=== PATIENT | female | born 1980 | race Caucasian/White ===

== ENCOUNTER 2018-07-04 05:53 | Day surgery (SDC) | payer OTHER, SELFPAY ==
[2018-06-30 15:24] LABS: Hematocrit 38.7 % (37-47); Hemoglobin 12.9 g/dl (12.0-15.0); Mean Corp Hgb Conc 33.3 g/gl (32-36); Mean Corpuscular Hgb 30.6 pg (27.0-32.0); Mean Corpuscular Volume 91.9 fL (81-99); Mean Platelet Vol. 11.8 fl (6.2-12.0); Platelet Count 218 K/mm3 (150-450); RBC Distribution Width CV 11.8 % (11.6-14.6); RBC Distribution Width SD 39.4 fl (35.1-43.9); Red Blood Count 4.21 M/mm3 (4.2-5.4); Scan Indicated on CBC? Y/N NO; White Blood Count 5.4 K/mm3 (4.4-11.0)
[2018-06-30 15:48] LABS: International Normalized Ratio 0.9; Partial Thromboplast Time 28.2 Seconds (24.1-36.2); Prothrombin Time (Protime)PT. 12.4 SECONDS (11.7-14.9)
[2018-06-30 16:04] LABS: Creatinine, Serum 0.78 mg/dL (0.55-1.02); EST Glomerular Filtration Rate 87 mL/min (>60); Est Glom Filt Rate - Afr Amer 106 mL/min (>60)
--- NOTE | 2018-07-03 20:28 | PCM.HP.BLA ---
History and Physical Date of Admission: 07/04/18 Surgical History and Physical Joanna Arguelles, a 38 year old female 4 0 0 0 4, presents for RAVH/BSO on July 04, 2018 at 9:00. -- Submucous fibroids; hematometrium s/p EM ablation; severe cyclic pelvic pain -- RLQ pain that radiates to back which began 2 weeks. Joanna claims it started gradually and has been present worsened last night. It occurs all the time. It is located in the RLQ of the abdomen. Joanna characterizes it to be upwards to the back. Joanna characterizes the quality sharp.; Joanna characterizes the quality searing.; Joanna characterizes the quality stabbing. 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 MEDICATIONS HISTORY: Patient is also takin. Advil 200 mg tablet, Two tablets prn 2. oxycodone-acetaminophen 10 mg-325 mg tablet, 1 to2 pills by mouth every 6 hours as needed ALLERGIES: Tape, Skin rxn, Exedrin, Hives, Adhesive Tape, Skin irritation, Aspirin, Hives and/or rash, Vicodin and Itching of skin Infections - Chicken pox Illnesses - none Accidents - no injuries of consequence Hospitalizations - see surgery and Childbirth Review of Systems: GENERAL - Denies fever, or chills SKIN - Denies skin changes EYES - Denies visual changes EARS - Denies difficulty hearing NOSE - Denies nasal congestion or bleeding MOUTH - Denies sore throat or difficulty swallowing NECK - Denies pain or swelling RESPIRATORY - Denies shortness of breath or wheezing CARDIOVASCULAR - Denies palpitations or chest pain GASTROINTESTINAL - Denies nausea, vomiting, diarrhea, constipation GENITOURINARY - Denies dysuria, frequency of urination, incontinence of urine MUSCULOSKELETAL - Denies joint or muscle pain NEUROLOGICAL - Denies localized numbness or weakness PSYCHIATRIC - Denies depression or anxiety ENDOCRINE - Denies heat or cold intolerance, weight loss or gain HEMATO-IMMUNOLOGIC - Denies excesive bleeding with cuts SOCIAL HISTORY: Alcohol Use - denies drinking Smoking - denies smoking Diet - no special diet Lifestyle - low stress lifestyle and Exercise - swim Seat Belt Use - always Employer - [employer] Job Description - office work Illicit Drug Use - denies use of street drugs Sexual Activity - Hours Worked - 40 hours per week Spouse-Sig Other Name - Leo Arguelles Spouse-Sig Other Occupation - skilled nursing facility counselor @ [employer] Spouse-Sig Other Phone No - [phone] Children Name(s) - Wilbert, (Dr. Saleem) Mc Preciado (Dr. Preeti Sanders), Elba Hinton (10/13-[facility]) Control - Tubal FAMILY HISTORY: Maternal history of MGM had low platelets, weekly platelet t and Heart Disease. MENSTRUAL HISTORY: LMP Known?- Definite, LMP - 09/24/17, Age Onset Menarche - 11 PAST PREGNANCIES: Total Pregnancies - 4; Full Term Pregnancies - 4; Premature - 0; Abortions, Induced - 0; Abortions, Spontaneous - 0; Ectopics - 0; Multiple Births - 0; Living Children - 4 SURGICAL HISTORY: 1. C/S x3, 1993, 2005, 2007 ; - 2. Tonsils 1984 ; - 3. 10/29/2009 , Tubal ; Eva Natarajan M.D. - Repeat 4. 09/24/2017 Hysteroscopy, D and C, HTA ; Eva Natarajan M.D. - PHYSICAL EXAM BP- 124/76 Sitting, Right arm, regular cuff Weight- 231.55445 lbs Height- 70 inch BMI:33.21 CONSTITUTIONAL - NAD, well nourished, and well developed SKIN - No rash, lesions, or ulcers HEENT - Normocephalic, PERRLA, EOMI NECK - No nodes, no nuchal rigidity and thyroid normal size and texture LYMPH NODES - Palpation of lymph nodes in neck and groins within normal limits LUNGS - CTA x2 without wheezes, crackles or rales CARDIAC - Regular rate and rhythm without rubs, murmurs, or gallops ABDOMEN - Without hepatosplenomegaly, distention, masses, rebound, or guarding; normal bowel sounds; no hernias EXTREMITIES - No edema or calf tenderness NEUROLOGICAL - Cranial nerves II-XII grossly intact PSYCHIATRIC - A and O to time, place, person, mood and affect External Genitial Vagina - non-tender without lesions Urethra/Urethral Meatus - non-tender Bladder - non-tender Vagina - vaginal velez are pink and moist without loss of rugae and no evidence of atropy Cervix - without cervical motion tenderness and has normal size and features without evident lesions Uterus - enlarged uterus 8 wks, wt 125-150 g and moderately tender R>L Adnexa - clear without massess or tenderness ASSESSMENT/PLAN: 1. Hematometra, Pelvic Pain, Unspec and Submucous Leiomyoma Of Uterus Severe pain with this and last menses with u/s today confirming post ablative hematometria. Also, submucous fibroid present. Discussed options for treatment with severity of pain pt desires proceeding with RAVH/BSO. Discussed RBAs including needing to be on HRT for an indefinite period of time and all questions answered.
[2018-07-04] VITALS (13 sets, daily range): BP systolic 101–133; BP diastolic 51–64; PULSE 64–81; RESP 14–16; TEMP 36.4–36.9; O2SAT 96–100; BMI 30.9
--- NOTE | 2018-07-04 06:06 | EKG12_ITS ---
Test Reason : PREOP Blood Pressure : / mmHG Vent. Rate : 067 BPM Atrial Rate : 067 BPM P-R Int : 138 ms QRS Dur : 084 ms QT Int : 390 ms P-R-T Axes : 039 006 008 degrees QTc Int : 412 ms Normal sinus rhythm Low voltage QRS Borderline ECG No previous ECGs available Confirmed by HARLAN ALBA, BEATRIZ ([id number]), desk editor JUAN CARLOS DALTON ([id number]) on 07/05/2018 2:59:04 PM Referred By: Gelacio Soliz Confirmed By:BEATRIZ CLAROS MD
--- NOTE | 2018-07-04 07:28 | OP.PCM_ITS ---
Operative Report Date of Procedure: 07/04/18 Surgeon: Gelacio Soliz MD, FACOG Editor In Chief: PATRICIO Nichols Anesthesia: Mirtha Major CRNA Type of anesthesia: General Endotracheal Procedure: Robotic Assisted Vaginal Hysterectomy and Bilateral Salpingoophrectomy Pre-Op: Hematometrium Status Post Endometrial Ablation, Pelvic Pain, Uterine Fibroids Post-Op: Hematometrium Status Post Endometrial Ablation, Pelvic Pain, Uterine Fibroids Findings: 10 cm fibroid uterus with normal appearing tubes and ovaries bilaterally; evidence of prior tubal ligation with Filshie clips Indication: This is a 38 year old patient who has been having problems with severe pelvic pain with her menses status post endometrial ablation. Conservative measures have not been helpful. The patient has been counseled regarding the risks, benefits and alternatives of this procedure including the possibility of bleeding, infection, and injury to surrounding structures such as bowel bladder and all questions were answered. She understands that with BSO she will need to be on HRT for an indefinite period of time. Procedure: Pt taken to the operating room where after induction of general anesthesia the patient was prepped and draped in the usual sterile fashion and placed on a non-slip Huggy-u-vac device. Trendendelenburg test was satisfactor y. Bladder was drained of urine with a Mejía catheter which was left in place. Anterior cervix grasped and cervix was dilated to about 3-4 mm. Uterus sounded to 8 cms although the uterus was noted to be perforated at the time of sounding. 0-Vicryl suture was placed at the 3:00 and 9:00 position of the cervix. A large V-care device was then placed in the uterus to allow uterine manipulation and attention was turned to the laparoscopic portion of the procedure. Ropivicaine 0.5% was injected approximately 2-3 cm superior to the umbilicus and an 8 mm robotic camera port was introduced directly with intraperitoneal placement confirmed with insufflation. 8 mm robotic side ports were introduced under direct visualization approximately 11 cm lateral and 2 cm inferior to the umbilical port. A 5 mm left upper quadrant port was introduced and airseal insufflation with CO2 was started. The above findings were noted. Robot was docked without difficulty and attention turned to the robotic portion of the procedure. Approximately 30 cc of Ropivicaine was used. Bilateral infundibulopelvic ligaments were ligated with 45 reid bipolar coagulation to the level of the round ligament. The posterior aspect of the cervix was identified and then opened for about 1 cm using 25 watt monopolar cautery identifying the V-care device which had been placed vaginally. Bladder flap was opened and divided to the level of the round ligaments using monopolar cautery. Progressive bites were then ligated on each side of the cervix with 35 reid bipolar cautery to the uterine arteries. The anterior vaginal mucosa was then entered and cervix circumscribed with monopolar cautery. Uterus and attached ovaries and tubes were then removed through the vagina. Vaginal cuff was closed first with 0-Vicryl Klarissa stitches placed at each angle followed by closure of the mid-cuff with 0-Monocryl V-lock suture in two layers. Pelvis was copiously irrigated with saline and the right and left ureters garcia noted to peristalse. Robot was undocked and trocars were removed with as much gas as possible. Incisions were closed with 4-0 Monocryl subcuticular sutures and incisions covered with steri-strips and op site dressing. The patient tolerated the procedure well and was taken to the recovery room in satisfactory condition. Sponge, instruments and needle counts were all correct. There were no apparent complications of the surgery. Cefotan 2 gms IV was given prior to the procedure. Estimated Blood Loss: Minimal Specimen to Pathology: Uterus and bilateral tubes and ovaries
--- NOTE | 2018-07-04 07:29 | DCINST_ITS ---
Discharge Diet: No Restrictions Discharge Activity: Return to Normal Activity, May not drive while taking narcotic pain medications., May Shower, May Take a Tub Bath May resume sexual activity in: 6-8 weeks Call your doctor if your incision/area has: Continuous Slow Oozing, Sudden Incre ased Bleeding, Increased Pain/ Swelling, Increased Redness, Foul Smelling Discharge Call your doctor if you observe: Fever of 101 or Higher, Inability to urinate, Inability to have a bowel movement, Using more than one pad per hour Allergies/Adverse Reactions: Allergies aspirin [From Excedrin Migraine] Allergy (Verified 06/30/18 10:56) Swelling caffeine [From Excedrin Migraine] Allergy (Verified 06/30/18 10:56) Swelling PLASTIC TAPE Allergy (Uncoded 06/30/18 10:57) Rash Medications to take at Discharge Ibuprofen 200 mg PO Q4H PRN PRN 06/30/18 Docusate Sodium [Colace] 100 mg PO BID PRN PRN #60 cap 07/04/18 Estradiol 2 mg PO DAILY #100 tab 07/04/18 Oxycodone [Oxyir] 5 mg PO Q6H PRN PRN 7 Days #20 tab 07/04/18 The following prescriptions were given: Oxycodone [Oxyir] 5 mg PO Q6H PRN PRN 7 Days #20 tab PRN Reason: Severe Pain (-07/13) Docusate Sodium [Colace] 100 mg PO BID PRN PRN #60 cap PRN Reason: Constipation Estradiol 2 mg PO DAILY #100 tab Primary Care Physician: Tacos Francois DO [Primary Care Provider] - Test Results: Test results from this visit will be discussed in further detail at your follow- up appointment, if applicable. Please Follow Up With: Gelacio Soliz MD When: 2-3 weeks
--- NOTE | 2018-07-04 07:30 | UT_PTH ---
PATIENT: LIAN NASH LOC[place] [facility] [place][id number] AGE/SX: 38/F ROOM: RE07/04/[address]: Dr. Gelacio Soliz MD : 1980 BED: DIS: 07/05/2018 SPEC #: [id number] RECD: 07/04/18 10:49 STATUS: LETA RECarter #: [id number] MARIELENA: 07/04/18 07:[address]: Gelacio Soliz DEPT: SURGICAL PATHOLOGY RECD BY: Kai Crawley ENTERED: 07/04/18 11:11 SP TYPE: UTERUS OTHR DR: Dr. Tacos Francois DO Tissues: Uterus, NOS Procedures: Surgery Specimen Level V HEADER OPERATION: Robotic assisted vaginal hysterectomy, bilateral salpingo-oophorectomy PRE-OP DIAGNOSIS: Hematometra, pelvic pain, submucous leiomyoma of uterus TISSUE SUBMITTED: Uterus, cervix, bilateral fallopian tubes and bilateral ovaries MICROSCOPIC DIAGNOSIS Uterus, cervix, bilateral fallopian tubes and bilateral ovaries, vaginal hysterectomy and bilateral salpingo-oophorectomy: Cervix - mild chronic cystic cervicitis. Endometrium - proliferative endometrium. - Focal fibrosis consistent with previous endometrial ablation. Bilateral fallopian tubes - no pathologic diagnosis. Right ovary - physiologic follicular cysts. Left ovary - mature cystic teratoma, dermoid cyst (1.5 cm in greatest dimension). - Physiologic follicular and corpus luteum cysts. SJ:angela 07/05/18 COMMENT Please make reference to previous specimen ([id number]) endometrial curettings with diagnosis of secretory endometrium. MICROSCOPIC DESCRIPTION Slides are reviewed. GROSS DESCRIPTION Received in fixative is one container labeled with the patient's name and designated uterus, cervix, bilateral fallopian tubes and bilateral ovaries. The specimen consists of a hysterectomy specimen consisting of uterus with cervix and attached bilateral fallopian tubes and ovaries. The uterus with cervix weighs 105 gm and measures 9 x 6 x 4 cm. The serosal surface is horowitz, glistening. The ectocervical mucosa is congested. The external os is slit-like in contour. The endocervical canal measures 3.5 cm in length and the endocervical mucosa is horowitz, glistening and unremarkable. The triangular endometrial cavity measures 5 cm in length and up to 3 cm in width. It shows a focal area of fibrosis 2.5 cm distal to the internal os. The endometrium is horowitz, glistening without any mass lesion. The endometrium measures 0.1 cm in thickness. The anterior uterine wall shows a defect reaching up to most of the thickness of the uterine wall and it is 0.5 cm away from the serosal surface. The anterior uterine wall measures up to 1.5 cm in thickness and the posterior uterine wall measures up to 2.5 cm in thickness. Sections of the uterine wall do not reveal any obvious mass lesion. The right fallopian tube measures 9 cm in length and up to 0.8 cm in diameter. The fimbrial end is identified. Two Filshie clips are noted in the middle portion of the fallopian tube which appears intact. The right ovary measures 2.5 x 1.5 x 1.5 cm. Sections reveal multiple cysts filled with clear fluid. The largest cyst measures 1 cm in diameter. The soft to cystic left ovary measures 3 x 2.5 x 2 cm. Sections reveal a cyst filled with sebum-like material measuring 1.5 x 1.5 x 1 cm. Additional cysts are also noted filled with clear to hemorrhagic fluid. [employer] sections are submitted in 14 cassettes as follows: 1 - anterior cervix, 2 - posterior cervix, 3-6 - anterior uterine wall including area of defect, 7 & 8 - posterior uterine wall, 9 - right fallopian tube, 10 - right ovary, 11 - left fallopian tube, 12-14 - left ovary, entirely submitted. / HOWIE:angela 07/04/18 TC:1 CPT: 32684
[2018-07-04] MEDS: Ropivacaine 0.5% 30 ML Vial (08:08)
[2018-07-04] MEDS: Ketorolac 30 MG/ML Syringe IV ×2 (15:15→21:16)
[2018-07-04] MEDS: Dextrose 5%-Lactated Ringers 1,000 ML 150 ML IV (15:19)
[2018-07-04] MEDS: oxyCODONE 5 MG Tablet PO (16:32)
[2018-07-04] MEDS: DiphenhydrAMINE 25 MG Capsule PO (17:06)
[2018-07-04] MEDS: Enoxaparin 40 MG/0.4 ML Syringe SC (18:30)
[2018-07-05 02:24] VITALS: BP 110/57; PULSE 95; RESP 14; TEMP 36.8; O2SAT 96
[2018-07-05] MEDS: Ketorolac 30 MG/ML Syringe IV ×2 (02:29→09:37)
[2018-07-05] MEDS: 0.9% NaCl Peripheral Flush Adult/Peds IV ×2 (02:30→09:43)
[2018-07-05 06:09] LABS: Hematocrit 35.4 % (37-47); Hemoglobin 11.8 g/dl (12.0-15.0); Mean Corp Hgb Conc 33.3 g/gl (32-36); Mean Corpuscular Hgb 30.7 pg (27.0-32.0); Mean Corpuscular Volume 92.2 fL (81-99); Platelet Count 200 K/mm3 (150-450); RBC Distribution Width CV 11.7 % (11.6-14.6); RBC Distribution Width SD 39.1 fl (35.1-43.9); Red Blood Count 3.84 M/mm3 (4.2-5.4); White Blood Count 11.1 K/mm3 (4.4-11.0)
[2018-07-05 06:15] LABS: Scan Indicated on CBC? Y/N NO
[2018-07-05 06:23] LABS: Creatinine, Serum 0.77 mg/dL (0.55-1.02); EST Glomerular Filtration Rate 88 mL/min (>60); Est Glom Filt Rate - Afr Amer 107 mL/min (>60); Estimated Creatinine Clearance 112.08 ml/min
[2018-07-05 07:40] VITALS: O2SAT 96
--- NOTE | 2018-07-05 08:32 | PCM.PN.OB ---
Subjective: Patient without complaints. Tolerating diet well. Positive flatus. Pain well controlled. Minimal vaginal bleeding. Able to void on own with catheter out. - Physical Exam Vital Signs AF, VSS Temp Pulse Resp BP Pulse Ox 98.3 F 95 14 110/57 L 96 07/05/18 02:24 07/05/18 02:24 07/05/18 02:24 07/05/18 02:24 07/05/18 07:40 Oxygen Flow Rate (L/min) 2 Oxygen Delivery Method Room Air Weight: 227 lb 15.327 oz Body Mass Index (BMI) 30.9 Intake and Output for Last 24 Hours 07/03/18 07/04/18 07/05/18 23:59 23:59 23:59 Intake Total 3658 / 3658 300 / 300 Output Total 1400 / 1400 1150 / 1150 Balance 2258 / 2258 -850 / -850 Laboratory Tests Past 24 Hrs 07/05/18 07/05/18 05:30 05:30 WBC 11.1 H RBC 3.84 L Hgb 11.8 L Hct 35.4 L MCV 92.2 MCH 30.7 MCHC 33.3 RDW 11.7 RDW Differential 39.1 Plt Count 200 MPV 12.0 Creatinine 0.77 Estim Creat Clear Calc 112.08 Est GFR (MDRD) Af Amer 107 Est GFR (MDRD) Non-Af 88 Wound is clean, dry, intact. Good urine output. Hemoglobin okay. Creatinine okay. Medical Necessity - Tobacco Use Smoking Status: Never smoker Assessment/Plan Doing well postoperative day #1. Will release to home with routine instructions.
[2018-07-05 09:00] VITALS: BP 116/60; PULSE 88; RESP 14; TEMP 36.7; O2SAT 96
[2018-07-05] MEDS: Estrogens,Conj. 1.25 MG Tablet PO (09:37)
== END 2018-07-05 10:40 | disposition home or self-care (01) ==
LOC: SDC 05:54 → AC 05:54 → MS3 07-05 06:39
PROVIDERS: Family Provider Family Medicine; PCP Family Medicine; Referring Provider Obstetrics & Gynecology; Visit Provider Obstetrics & Gynecology
PROC: 0UT94ZZ Resection of Uterus, Percutaneous Endoscopic Approach (ICD-10-PCS; CPT 58552; principal; 2018-07-04 07:10)
DX: N85.7 Hematometra (principal); D25.0 Submucous leiomyoma of uterus; R10.2 Pelvic and perineal pain; Z98.51 Tubal ligation status; N72 Inflammatory disease of cervix uteri; D27.1 Benign neoplasm of left ovary; N83.12 Corpus luteum cyst of left ovary; G47.30 Sleep apnea, unspecified; Z23 Encounter for immunization
CPT/HCPCS: 58552; 36415; 82565; 85027; 85610; 85730; 86850; 86900; 88307; 93005; J7120; 90686; A4216; J2405

== ENCOUNTER → 2019-09-05 17:30 | Outpatient (CLI) | payer OTHER, SELFPAY ==
--- NOTE | 2019-09-05 17:27 | BI_ITS ---
MAMMOGRAPHY - BILATERAL SCREENING REASON FOR EXAM: Female, 39 years old. Routine annual screening examination. PERTINENT HISTORY: Non-contributory. TECHNIQUE: Digital bilateral breast tanisha (3D mammographic acquisition) in the CC and MLO projections. 2-D mediolateral oblique (MLO) and craniocaudad (CC) views of both breasts were obtained. CAD: Full Field Digital Mammography with Computer Added Detection was performed. COMPARISON: None. Baseline examination. FINDINGS: Breast Composition: There are scattered areas of fibroglandular density. There are no dominant masses or suspicious calcifications. No other significant abnormalities are identified. BI/SCREEN MAMM (CAD) W/TANISHA BILAT IMPRESSION: Negative screening mammogram. Yearly followup mammogram recommended. (A) ASSESSMENT CATEGORY: BIRADS Category 1: Negative. A letter regarding these results will be sent to the patient by the facility within 30 days. Approximately 10% of breast cancers are not detected by mammography. A normal mammogram should not delay biopsy of a clinically suspicious abnormality. [id number] Electronically Signed: Corona Calderon, at 10:38 EST , Service support ,
== END ==
PROVIDERS: Family Provider Family Medicine; PCP Family Medicine; Referring Provider Obstetrics & Gynecology; Visit Provider Obstetrics & Gynecology
DX: Z12.31 Encounter for screening mammogram for malignant neoplasm of breast (principal)
CPT/HCPCS: 77063; 77067